=== PATIENT | male | born 1985 | race Two or more races ===

== ENCOUNTER 2018-01-23 05:43 | Inpatient (IN) | payer OTHER ==
[2018-01-23] VITALS (13 sets, daily range): BP systolic 124–147; BP diastolic 72–84
[~2018-01-23] VITALS: Ht 182.9 cm; Wt 150.6 kg
[2018-01-23] MEDS ORDERED: ceFAZolin sod 2 GM in D5W 110 ML IVPB ONE (07:00)
--- NOTE | 2018-01-23 07:37 | Pre-Procedure Note/Attestation ---
Pre-Procedure Note/Attestation Complete Prior to Procedure Planned Procedure: right Procedure Narrative: Right sided L5S1 hemilaminotomy foraminotomy microdiscectomy Indications for Procedure Pre-Operative Diagnosis: Right sided L5S1 herniation Attestation I attest that I discussed the nature of the procedure; its benefits; risks and complications; and alternatives (and the risks and benefits of such alternatives ), prior to the procedure, with the patient (or the patient's legal dairy supplies sales representative). I attest that, if there was a reasonable possibility of needing a blood transfusion, the patient (or the patient's legal dairy supplies sales representative) was given the [facility] standardized written summary, pursuant to the Erasmo [place] Blood Safety Act ([place] Health and Safety Code # 1645, as amended). I attest that I re-evaluated the patient just prior to the surgery and that there has been no change in the patient's H&P, except as documented below: Duncan Roblero MD Jan 23, 2018 07:37
--- NOTE | 2018-01-23 07:38 | Brief Operative Note ---
Immediate Post Operative Note Operative Note Chief Complaint: back pain and radiculopathy Pre-op Diagnosis: Right sided L5S1 herniation Procedure: Right sided L5S1 hemilaminotomy foraminotomy microdiscectomy Post-op Diagnosis: same as pre-op Findings: consistent w/pre-op dx studies Surgeon: Osbaldo Photo Lab Manager: Eliceo Anesthesiologist: Niesha Anesthesia: general Specimen: none Complications: none Condition: stable Fluids: ivf Estimated Blood Loss: minimal Drains: none Implant(s) used?: No Duncan Roblero MD Jan 23, 2018 07:38
[2018-01-23] MEDS ORDERED: Morphine Sulfate 2mg/ml Inj IV PRN (07:45)
[2018-01-23] MEDS ORDERED: Metoclopramide 10mg/2ml Inj IVP PRN ×2 (07:45→08:45)
[2018-01-23] MEDS ORDERED: Milk of Magnesia 30ml Ud ORAL PRN (07:45)
[2018-01-23] MEDS ORDERED: Norco 5mg/325mg tab ORAL PRN ×2 (07:45→08:45)
[2018-01-23] MEDS ORDERED: Morphine Sulfate 4mg/ml Inj (IV/IM USE ONLY) IV PRN ×2 (07:45)
[2018-01-23] MEDS ORDERED: HYDROmorphone 1mg/ml Carpuject IVP PRN (07:45)
[2018-01-23] MEDS ORDERED: HYDROcodone/Acetamin 7.5/325 tab ORAL PRN ×3 (07:45→08:45)
[2018-01-23] MEDS ORDERED: NKM (08:00)
[2018-01-23] MEDS ORDERED: LR 1000ml 1,000 ML IVLG SCH (08:37)
--- NOTE | 2018-01-23 08:38 | Anethesia Preoperative Eval ---
Anesthesia Pre-op PMH/ROS General Date of Evaluation: Jan 23, 2018 Time of Evaluation: 10:04 Anesthesiologist: Niesha ASA Score: ASA 2 Mallampati Score Class I : Soft palate, uvula, fauces, pillars visible Class II: Soft palate, uvula, fauces visible Class III: Soft palate, base of uvula visible Class IV: Only hard plate visible Mallampati Classification: Class III Surgeon: Osbaldo Diagnosis: Back Pain Surgical Procedure: R L5-S1 Microdiscectomy, Hemilaminotomy Anesthesia History: none Family History: no anesthesia problems Allergies: Coded Allergies: No Known Allergies (Unverified , 01/21/18) Medications: see eMAR Patient NPO?: Yes NPO Date: Jan 22, 2018 NPO Time: 1800 Past Medical History Neurologic/Psychiatric: Reports: depression/anxiety Other: obesity - Morbid, BMI 45 PSxH Narrative: Cholecystectomy Anesthesia Pre-op Phys. Exam Physician Exam Last Vital Signs Date Time Temp Pulse Resp B/P (MAP) Pulse Ox O2 Delivery O2 Flow Rate FiO2 01/23/18 07:56 97.0 62 18 130/73 (92) 96 01/23/18 07:53 Room Air Constitutional: NAD Neurologic: CN 2-12 intact Cardiovascular: RRR Respiratory: CTA Gastrointestinal: S/NT/ND Airway Exam Mallampati Score: Class III MO: limited ROM: full Teeth: intact Anesthesia Pre-op A/P Risk Assessment & Plan Assessment: ASA 2 Plan: GA, SED, GlideScope Go Status Change Before Surgery: No Pre-Antibiotics Dru Grams Ancef IV Given Within 1 Hr of Incision: Yes Time Given: 10:21 Kam Scherer MD Jan 23, 2018 08:38
[2018-01-23] MEDS ORDERED: Zemuron 50mg/5ml Inj IV ONE (08:43)
[2018-01-23] MEDS ORDERED: Hydromorphone 0.5mg/0.5ml inj IVP PRN (08:45)
[2018-01-23] MEDS ORDERED: Atropine Sulfate 0.4mg/ml inj IVP PRN (08:45)
[2018-01-23] MEDS ORDERED: Ketorolac 30mg Inj IV PRN ×2 (08:45)
[2018-01-23] MEDS ORDERED: oxyCODONE HCL/Acetaminophen 5/325mg ORAL PRN (08:45)
[2018-01-23] MEDS ORDERED: Midazolam 2mg/2ml Inj IVP PRN (08:45)
[2018-01-23] MEDS ORDERED: DiphenhydrAMINE 50mg/ml Inj IVP PRN (08:45)
[2018-01-23] MEDS ORDERED: LORazepam Inj 2mg/ml 1ml IV PRN (08:45)
[2018-01-23] MEDS ORDERED: Meperidine 50mg/ml Inj(FOR RIGORS ONLY) IVP PRN (08:45)
[2018-01-23] MEDS ORDERED: fentaNYL 100 mcg/2 mL IV PRN (08:45)
[2018-01-23] MEDS ORDERED: Acetaminophen (Non formulary) 100 ML IV ONE (08:45)
[2018-01-23] MEDS ORDERED: Lidocaine 1% Plain 30 ml INJ ONE ×2 (08:51→11:33)
[2018-01-23] MEDS ORDERED: Lidocaine 1% MPF 10mg/ml 5ml ONE (08:54)
[2018-01-23] MEDS ORDERED: Sodium Chloride 10ml vial INJ ONE (08:54)
[2018-01-23] MEDS ORDERED: fentaNYL 100 mcg/2 mL IV ONE ×3 (08:59→11:35)
[2018-01-23] MEDS ORDERED: Vancomycin 1gm inj IVPB ONE (09:54)
[2018-01-23] MEDS ORDERED: Thrombin 5000 units TOPIC ONE ×2 (09:55→11:23)
[2018-01-23] MEDS ORDERED: Gelfoam Size TOPIC ONE (09:55)
[2018-01-23] MEDS ORDERED: Bacitracin 50000 Units Vial ONE (09:55)
[2018-01-23] MEDS ORDERED: Ropivacaine 5mg/ml Vial 30ml INJ ONE ×3 (09:56→11:27)
[2018-01-23] MEDS ORDERED: LR 1000ml ONE (10:00)
[2018-01-23] MEDS ORDERED: Sterile Water Irrig 1000ml IRRIG ONE (10:00)
[2018-01-23] MEDS ORDERED: Propofol 1,000mg/ 100ml btl IV ONE (10:00)
--- NOTE | 2018-01-23 10:59 | Immediate Post-Op Evaluation ---
Immediate Post-Op Evalulation Immediate Post-Op Evalulation Procedure: R L5-S1 Microdiscectomy, Hemilaminotomy Date of Evaluation: Jan 23, 2018 Time of Evaluation: 12:19 IV Fluids: 6000 LR Blood Products: 0 Estimated Blood Loss: 10 Urinary Output: 0 Blood Pressure Systolic: 134 Blood Pressure Diastolic: 82 Pulse Rate: 94 Respiratory Rate: 16 O2 Sat by Pulse Oximetry: 97 Temperature (Fahrenheit): 99.1 Pain Score (1-10): 2 Nausea: No Vomiting: No Complications 0 Patient Status: awake, reacts, patent, extubated, none Hydration Status: adequate Dru Grams Ancef IV Given Within 1 Hr of Incision: Yes Time Given: 10:21 Kma Scherer MD Jan 23, 2018 10:59
[2018-01-23] MEDS ORDERED: NS Irrig 1000ml IRRIG ONE (11:21)
[2018-01-23] MEDS ORDERED: Glycopyrrolate 0.2mg/ml 1ml Vial ONE (13:34)
[2018-01-23] MEDS ORDERED: Neostigmine 1mg/ml 10ml Inj ONE (13:34)
[2018-01-23] MEDS ORDERED: Naloxone 0.4mg/ml Inj IVP PRN (13:59)
--- NOTE | 2018-01-23 14:03 | Diagnostic Imaging Report ---
Indication: Back pain. Intraoperative imaging Comparison: None Findings: 2 crosstable lateral views of the lumbar spine showing instrumentation posterior to the L5-S1 disc. IMPRESSION: Intraoperative imaging
[2018-01-23] MEDS ORDERED: Chloraseptic Spray 20mL Bottle ORAL PRN (14:04)
--- NOTE | 2018-01-23 14:57 | 48 Hour Post Anesthesia Eval ---
Post Anesthesia Evaluation Procedure: R L5-S1 Microdiscectomy, Hemilaminotomy Date of Evaluation: Jan 23, 2018 Time of Evaluation: 14:56 Blood Pressure Systolic: 125 0: 73 Pulse Rate: 84 Respiratory Rate: 20 Temperature (Fahrenheit): 98.1 O2 Sat by Pulse Oximetry: 98 Airway: patent Nausea: No Vomiting: No Pain Intensity: 2 Hydration Status: adequate Cardiopulmonary Status: Stable Mental Status/LOC: patient returned to baseline Follow-up Care/Observations: 0 Post-Anesthesia Complications: 0 Follow-up care needed: ready to discharge Kam Scherer MD Jan 23, 2018 14:57
[2018-01-23] MEDS ORDERED: NORCO 10-325 T1 EACH ORAL (15:43)
[2018-01-23] MEDS ORDERED: SOMA350 MG PO (15:43)
[2018-01-23] MEDS ORDERED: NS w/KCl 20mEq 1,000 ML IV SCH (16:00)
[2018-01-23] MEDS ORDERED: Tubing IV Secondary IV ONE (16:22)
[2018-01-23] MEDS ORDERED: Docusate 100mg cap ORAL SCH (18:00)
[2018-01-23] MEDS ORDERED: Dexamethasone 4mg/ml vial IVP SCH (18:00)
[2018-01-23] MEDS ORDERED: ceFAZolin sod 1 GM in D5W 55 ML IV SCH (18:30)
--- NOTE | 2018-01-24 12:26 | Discharge Summary ---
Discharge Summary Hospital Course Date of Admission Jan 23, 2018 at 05:43 Date of Discharge Jan 23, 2018 at 17:00 Admitting Diagnosis Right sided L5S1 herniation Reason for Hospitalization: elective surgery JUWAN Pak is a 32 year old male who was admitted on Jan 23, 2018 at 05:43 for right sided Herniated Nucleus Pulposus L5S1 with pain and radiculopathy. Patient was admitted for elective surgery. Procedures s/p 01/23/[address] Roblero Right sided L5S1 hemilaminotomy, foraminotomy , microdiscectomy Hospital Course status post surgery course of recovery uneventful initially IV fluids s/p perioperative antibiotics neurovascular status closely monitored, remained stable incision clean, dry and intact pain management addressed hemodynamically stable ambulated with PT fall precautions maintained; safe for ambulation tolerated diet , IV fluids discontinued antiemetics were on board as needed voided freely bowel regimen instituted patient was stable for discharge discharge instructions provided follow up with surgeon as advised as outpatient FINAL DIAGNOSES Right sided L5S1 herniation Radiculopathy s/p R L5-S1 Hemilaminotomy, foraminotomy, microdiscectomy. Discharge Medications Continued Medications: Carisoprodol* (Soma*) 350 Mg Tablet 350 MG PO BID, #100 TAB (This prescription has been renewed) Hydrocodone Bit/Acetaminophen 10-325* ([place] 10-325*) 1 Each Tablet 1 TAB ORAL Q8HR PRN for For Pain, #90 TAB 0 Refills (This prescription has been renewed) PRN PAIN Discharge Condition Upon Discharge: stable Discharge Disposition Patient was discharged to Home () Discharge Instructions Discharge Instructions Special Instructions I have been assigned to complete a D/C Summary on this account. I was not involved in the patient management Abbie Fair TOOL ANALYST Jan 24, 2018 12:26
--- NOTE | 2018-01-24 16:17 | Operative Note - Dictated ---
DATE OF OPERATION: 01/23/2018 SURGEON: Duncan Roblero M.D., Orthopaedic Spine Surgeon DECAL CUTTER SURGEON: Evens Fenton M.D. ANESTHESIOLOGIST: Kam Scherer M.D. ANESTHESIA: General endotracheal anesthesia. PREOPERATIVE DIAGNOSES: 1. Intractable back pain. 2. Intractable leg pain. 3. Worsening radiculopathy. 4. Weakness. 5. Herniated nucleus pulposus, L5-S1 herniation. 6. Neural foraminal stenosis, L5-S1. POSTOPERATIVE DIAGNOSES: 1. Intractable back pain. 2. Intractable leg pain. 3. Worsening radiculopathy. 4. Weakness. 5. Herniated nucleus pulposus, L5-S1 herniation. 6. Neural foraminal stenosis, L5-S1. PROCEDURES PERFORMED: 1. Right-sided L5-S1 microdiscectomy. 2. L5-S1 hemilaminotomy, foraminotomy and medial facetectomy. 3. L5-S1 neural foraminotomy through a transpedicular intraforaminal approach. 4. Use of intraoperative microscope. 5. Supervision and interpretation of intraoperative fluoroscopy. 6. Supervision and interpretation of somatosensory-evoked potential and free running EMG monitoring. ESTIMATED BLOOD LOSS: Less than 100 mL. COMPLICATIONS: None. INDICATIONS FOR THE PROCEDURE: Guillermo presents for intractable back pain and radiculopathy. The patient tried and failed a prolonged course of conservative management, including but not limited to chiropractic therapy, physical therapy, nonsteroidal anti-inflammatory drugs, medication, ice packs as well as epidural injection. Despite these therapies, the patient still developed recalcitrant pain and elected for definitive management in the form of right-sided L5-S1 microdiscectomy, L5-S1 hemilaminotomy, foraminotomy and medial facetectomy, and L5-S1 neural foraminotomy through a transpedicular intraforaminal approach. We had a long discussion with him regarding definitive surgical treatment options. The patient's MRI demonstrated herniated nucleus pulposus, L5-S1 herniation, neural foraminal stenosis, L5-S1 and as a result, I felt he would benefit from the discectomy as well as neural foraminotomy at this level. We had a long discussion with the patient regarding the risks, alternatives, and benefits of surgery. Our description of the risks included a discussion in person as well as a signed consent which detailed all pertinent risks and the procedure itself. Briefly, our discussion included but was not limited to infection, bleeding, pseudarthrosis, spinal cord injury, neurovascular injury, dural tear, CSF leak, neuropathy, paralysis, permanent weakness/drop foot, paresthesias blindness, palsy and weakness. The patient understood there may be a need for revision surgery or additional procedures. Approach related complications including dysphonia, dysphagia, blindness, permanent vocal cord and neural injury, hematoma, swallowing and breathing difficulty. Medical complications including liver, kidney, shock, and cardiopulmonary failure. Anesthesia complications including , swelling. Damage to the musculature, larynx (voice injury or loss),esophagus (throat), trachea, blood vessels and muscles (muscular sprain) and lungs (pneumothorax) during this surgical procedure. Injury to deeper structures may be temporary or permanent. The patient understood these and elected to proceed. A written and verbal consent was given. We discussed the pros and cons of all the alternatives. We discussed the uncertainties associated with the decision. Afterwards I assessed the patients understanding and explored their preferences. All questions were answered and no guarantees were given. Medical clearance was obtained prior to surgery. OPERATIVE FINDINGS: A broad-based disc herniation at L5-S1, which encroached on the thecal sac and neural foraminal elements therein. This disc was acute in nature and not calcified. It was mobile and free floating and resected easily. There was also neural foraminal stenosis at L5-S1. DESCRIPTION OF PROCEDURE: Under the benefit of general endotracheal anesthesia and with the assistance of the entire operative team, the patient was moved from the rpaicines onto the operative table in the prone position on a Jose frame. The head was secured and positioned appropriately. Bilateral arms were secured with Gel pads and foam and all bony prominences were padded. The bilateral lower extremity SCD and VICKIE hose were placed for DVT prophylaxis. A surgical timeout was called which corroborated our planned procedure. Preoperative Antibiotics were administered within 30 minutes of the incision for prophylaxis. Decadron was given for preoperative steroids. Using lateral radiography, the operative levels were delineated. An incision was marked based on our interpretation of lateral radiography and afterwards the body was prepped and draped in the usual sterile manner. The family was notified that we were ready to commence surgery and were called in the waiting room hourly for updates. An incision was based on our lateral fluoroscopic image to center the incision at the L5-S1 interspace. The wound was prepped and draped in the usual sterile fashion. Using a scalpel a midline incision was taken down through the skin and subcutaneous tissues until the overlying hemilamina of L5-S1 were visualized. Next, using meticulous hemostasis, hemilamotomies were dissected and retractors were placed. Using a Sylvester dental we confirmed placement at the L5-S1 interspace. We next turned our attention to our decompression. A standard hemilaminotomy foraminotomy medial facetectomy was performed at each level in standard fashion using a Midas-Cy type AM8 drill bit, straight and angled curettage, and Kerrison 4 rongeurs until the lateral thecal sac margin and traversing nerve root was visualized. All remainders of the ligamentum flavum and lateral bony margins were resected in total with angled curettage and Kerrison 4 rongeurs until the lateral thecal sac margin and traversing nerve root was visualized and decompressed. We next turned our attention toward our L5-S1 microdiscectomy on the right side. A Irwin 4 was used to gently mobilize the thecal sac medially and this was held retracted with a bayonetted nerve root retractor. It was at this point that we noted a large broad-based disc protrusion with encroachment dorsally on the thecal sac neural foraminal contents. A bayonet and nerve root retractor was then placed carefully to retract the thecal sac and a discectomy was performed using a combination of a long handled 15 blade scalpel, downgoing and straight pituitaries and downgoing curettage. Afterward the disc space was irrigated twice with 20 mL of antibiotic-impregnated saline. All loose and free-floating disc fragments were carefully resected with a narrow pituitary. Having been satisfied with our decompression after our discectomy of all neural elements we next turned our attention to our neural foraminoplasty/foraminotomy. This was performed through a transpedicular intraforaminal approach using an access probe followed by a neuro check device, which confirmed ventral placement of our nerve root. Once we confirmed we were safe we next turned our attention towards placement of our size 10 file under direct microscopic visualization and under lateral fluoroscopy. Using pre and post reciprocation imaging we were able to visualize our direct decompression given the reciprocation allowed for re-creation of the neural foraminal arch at L5-S1. Afterwards hemostasis was obtained with 60 mL of antibiotic-impregnated saline followed by FloSeal and Gelfoam. After sponge and needle count were found to be correct, next we turned our attention to closure. Closure consisted of 1-0 Vicryl in standard interrupted fashion. Zosyn was placed deep to the fascia and superficial to the fascia for Antibiotic prophylaxis. Skin closure was performed with 2-0 Vicryl in interrupted fashion followed by a running Monocryl for the skin. Final dressings consisted of Dermabond for the superficial skin, Telfa and Tegaderm. The patient tolerated the procedure well. The patient was extubated after the conclusion of surgery without incident. We discussed the findings of the surgery with the family upon completion of the case. At this point the patient will be transferred to the spine floor for further observation. Duncan Roblero M.D. DR: ANTHONY JOB#: [id number] CC:
--- NOTE | 2018-01-24 16:31 | Discharge Summary ---
DATE OF ADMISSION: 01/23/2018 DATE OF DISCHARGE: 01/23/2018 PROCEDURE PERFORMED DURING ADMISSION: Right-sided L5-S1 hemilaminotomy, foraminotomy, and microdiskectomy. REASON FOR ADMISSION: L5-S1 disk herniation. HOSPITAL COURSE/TREATMENT RENDERED: . DISCHARGE PHYSICAL EXAMINATION: 1. The patient was ambulating with and without the assistance of physical therapy. 2. Prior to discharge home incision was clean and dry with minimal swelling. 3. Follows commands. 4. Alert and oriented. 5. Dias discontinued, voiding. 6. Incentive spirometer at bedside. 7. IVF hep locked. MOTOR: Demonstrates expected postoperative bulk and tone. Moves biceps, triceps, and deltoid musculature on command. Moves hip flexors, quadriceps, tibialis anterior, EHL, gastrocsoleus musculature on command as well. TREATMENT RENDERED: 1. Daily nursing care. 2. Physical Therapy. 3. Occupational Therapy. 4. Intravenous medications. 5. Oral medications. 6. Daily postoperative examinations by Spine surgery team. CONDITION OF PATIENT ON DISCHARGE: The condition on discharge is stable for discharge to home. DISCHARGE INSTRUCTIONS: Our specific instructions relating to physical activity, medications, diet, and followup care are detailed in our standard operative folder and were given to this patient prior to surgery. We will however summarize these briefly as stated below. Regarding physical activity, we would like the patient to limit their flexion, extension, and rotation. We also require a limitation on their bending, lifting, and twisting. All medication has been called in prior to surgery to their pharmacy of choice. They can resume their regular diet once tolerated. We would like them to shower and limit soaking the wound in a tub/Jacuzzi/the ocean for a period of one month or until the incision is completely healed. We will have them follow up in our office in three weeks time for their regularly scheduled appointment. They understand to call our office tomorrow to schedule the time for their three week followup appointment. The patient will notify us should they experience any increase in the severity of pain, redness/swelling/ or drainage from their incision. Duncan Roblero M.D. DR: ANTHONY JOB#: [id number] CC:
== END 2018-01-23 17:00 | disposition home or self-care (01) | DRG 519 ==
LOC: SDSOVERFLO 05:43 → 3E 13:50
PROC: 0SB40ZZ Excision of Lumbosacral Disc, Open Approach (ICD-10-PCS; principal; 2018-01-23 09:30)
PROC: 01NB0ZZ Release Lumbar Nerve, Open Approach (ICD-10-PCS; principal; 2018-01-23 09:30)
DX: M51.17 Intervertebral disc disorders with radiculopathy, lumbosacral region (principal); M48.07 Spinal stenosis, lumbosacral region; V89.2XXS Person injured in unspecified motor-vehicle accident, traffic, sequela; F17.200 Nicotine dependence, unspecified, uncomplicated; Z68.42 Body mass index [BMI] 45.0-49.9, adult; E66.3 Overweight; Z90.49 Acquired absence of other specified parts of digestive tract
CPT/HCPCS: 36415; 72020; 76001; 86850; 86900; 86901; 87081; 94003; 94150; J2405; J2710